=== PATIENT | female | born 1955 | race Caucasian/White ===

== ENCOUNTER 2018-04-12 13:06 | Outpatient (CLI) | payer OTHER ==
--- NOTE | 2018-04-12 16:10 | MRI ---
MRI OF CERVICAL SPINE WITHOUT CONTRAST: 04/12/18 Multiplanar and multisequential imaging of the cervical spine obtained. INDICATIONS: Neck pain. Radiation to right upper extremity. FINDINGS: Cervical vertebrae maintain normal height. There is straightening of a normal lordotic curvature. Sli ght posterolisthesis at C5-6. Loss of disc space at C5-6 and C6-7. Mild anterior osteophytes in the c ervical vertebrae. At C3-4, posterior disc bulge and spondylosis efface the anterior subarachnoid space. No evidence of cord impingement. There is right foraminal stenosis due to facet and uncinate hypertrophy at this lev el. At C4-5, mild disc bulge and spondylosis efface the anterior subarachnoid space. Mild left foraminal narrowing secondary to facet and uncinate hypertrophy. At C5-6, there is bulge and spondylosis slightly more prominent impinging on the anterior cord. Bilat eral foraminal stenosis secondary to facet and uncinate hypertrophy. At C6-7, disc bulge and spondylosis flatten the thecal sac and efface the anterior subarachnoid space . Mild bilateral foraminal encroachment from facet and uncinate hypertrophy. Cervical cord signal appears normal. IMPRESSION: Posterior disc bulge and spondylosis at multiple levels of the cervical spine with associated foramin al stenosis as described above. POS: [facility]
== END 2018-04-12 13:07 | disposition home or self-care (01) ==
LOC: SCSMRI 13:06
PROVIDERS: ATTEND Neurological Surgery
DX: M50.11 Cervical disc disorder with radiculopathy, high cervical region (principal); M47.22 Other spondylosis with radiculopathy, cervical region; M99.81 Other biomechanical lesions of cervical region
CPT/HCPCS: 72141